=== PATIENT | female | born 1970 | race Caucasian/White ===

== ENCOUNTER 2018-07-05 09:56 | Emergency (ER) | END 2018-07-05 11:36 | disposition home or self-care (01) ==

== ENCOUNTER 2018-07-06 19:14 | Emergency (ER) | END 2018-07-06 20:37 | disposition left against medical advice (07) ==

== ENCOUNTER 2018-07-08 18:41 | Emergency (ER) | END 2018-07-08 21:14 | disposition home or self-care (01) ==